=== PATIENT | female | born 1970 | race Caucasian/White ===

== ENCOUNTER 2020-04-15 08:18 | Emergency (ER) | payer OTHER ==
[~2020-04-15] VITALS: Ht 157.5 cm; Wt 72.6 kg
[2020-04-15 08:30] VITALS: BP 140/80
[2020-04-15] MEDS ORDERED: PROMETH-CODEIN 65 ML PO (09:57)
[2020-04-15] MEDS ORDERED: ZPAK PO (09:57)
[2020-04-15] MEDS ORDERED: VENTOLIN HFA 1818 GM INH (09:57)
== END 2020-04-15 10:16 | disposition home or self-care (01) ==
LOC: M.ERS 08:18
DX: U07.1 COVID-19 (principal); E11.9 Type 2 diabetes mellitus without complications

== ENCOUNTER → 2021-11-11 | Outpatient (CLI) | payer OTHER ==
[~2021-11-11] MED LIST: PROMETH-CODEIN 65 ML PO; VENTOLIN HFA 1818 GM INH; ZPAK PO
== END ==
LOC: M.RAD 11-01 13:00
PROVIDERS: ATTEND Family Medicine
DX: Z12.31 Encounter for screening mammogram for malignant neoplasm of breast (principal)

== ENCOUNTER → 2021-11-11 | Outpatient (CLI) | payer OTHER | LOC: M.ULTRA 12:40 | PROVIDERS: ATTEND Family Medicine | DX: N92.5 Other specified irregular menstruation (principal) ==